=== PATIENT | female | born 1955 | race Caucasian/White ===

== ENCOUNTER → 2017-02-09 | Outpatient (CLI) | payer BC ==
[~2017-02-09] MED LIST: MULT1TAB22 PO
--- NOTE | 2017-02-09 16:18 | MAMMOGRAPHY REPORT ---
BILATERAL DIGITAL SCREENING MAMMOGRAM WITH CAD: 02/09/2017 CLINICAL HISTORY: Routine screening. The patient reported to the technologist that her left breast f eels larger, a new finding. TECHNIQUE: Current study was also evaluated with a Computer Aided Detection (CAD) system. Bilateral CC and MLO views were obtained. COMPARISON: Comparison is made to exams dated: 02/04/2016 mammogram, 07/10/2014 mammogram, 07/02/2013 ultrasound, 07/02/2013 mammogram - [facility], and 02/19/2009. BREAST COMPOSITION: There are scattered areas of fibroglandular density in both breasts. FINDINGS: No suspicious masses, calcifications, or areas of architectural distortion are noted in ei ther breast. There has been no significant interval change compared to prior exams. Scattered bilater al benign-appearing calcifications are not significantly changed. IMPRESSION: ACR BI-RADS CATEGORY 2: BENIGN There is no mammographic evidence of malignancy. A 1 year screening mammogram is recommended. Also r ecommend clinical follow-up for left breast enlargement reported by the patient to the technologist. The patient will receive written notification of the results. Approximately 10% of breast cancers are not detected with mammography. A negative mammographic report should not delay biopsy if a clinically suggestive mass is present. Araceli Lama M.D. ah/:02/09/2017 16:04:21 Compressor Battery Pellets: Bettie Prince RT(R)(M), [facility] letter sent: Normal 1/2 BI-RADS Code: ACR BI-RADS Category 2: Benign
== END | disposition home or self-care (01) ==
LOC: C.MAMM 13:12
PROVIDERS: ATTEND Family Medicine
DX: Z12.31 Encounter for screening mammogram for malignant neoplasm of breast (principal)

== ENCOUNTER → 2017-07-03 | Outpatient (CLI) | payer BC ==
--- NOTE | 2017-07-03 15:36 | MAMMOGRAPHY REPORT ---
ULTRASOUND OF LEFT BREAST: 07/03/2017 CLINICAL HISTORY: 62-year-old woman presents after she noticed a visible red lesion on the skin of he r left breast on June 15. She underwent a 10 day course of antibiotics but the lesion persists. S he has also consulted with dermatology and general surgery. COMPARISON: Comparison is made to exams dated: 02/09/2017 mammogram, 02/04/2016 mammogram, 07/10/2014 m ammogram, 07/02/2013 ultrasound, 07/02/2013 mammogram - [facility], and 02/19/2009. FINDINGS: Targeted ultrasound was performed in the area of visible skin lesion pointed out by the pa tient, within the 2:00 left breast, 2 cm from the nipple. On visual inspection, there is a 3 x 2 cm ovoid erythematous patch with central punctum in the area of concern. On ultrasound, there is a derm al lesion. No abnormality deep or within the breast parenchyma. The lesion confined to the dermis i s horizontally oriented and hypoechoic. There is a probable punctum extending to the skin surface, s uggesting this represents a resolving epidermal inclusion cyst. Clinical follow-up is recommended an d imaging follow-up at resolution is also recommended. The patient declined mammography today. IMPRESSION: ACR-BI-RADS CATEGORY 3: PROBABLY BENIGN 1. The visible erythematous lesion in the 2:00 left breast most likely represents a resolving epider mal inclusion cyst. Continued clinical monitoring and clinical follow-up is recommended to ensure co mplete resolution. Follow-up imaging at resolution is also recommended. The patient reports she is leaving for [place] for the next 6 months and as long as the area becomes less evident clinically, would recommend bilateral diagnostic tomosynthesis mammograms and repeat tar geted ultrasound at time of resolution when patient returns from [place], when she will be due for an nual mammography is well. Cherise Hess M.D. ay/:07/03/2017 13:51:32 Ict Teacher: Neida LANGFORD(Yuliya)(M), [facility] letter sent: Follow Up Recommended 3 BI-RADS Code: ACR-BI-RADS Category 3: Probably Benign
== END | disposition home or self-care (01) ==
LOC: C.MAMM 13:26
PROVIDERS: ATTEND Surgery
DX: N60.02 Solitary cyst of left breast (principal)